=== PATIENT | female | born 1990 | race Caucasian/White ===

== ENCOUNTER 2018-06-17 21:02 | Observation (INO) | payer MEDICAID ==
[~2018-06-17] VITALS: Ht 152.4 cm; Wt 60.3 kg
[2018-06-17] MEDS ORDERED: PREN1TAB78 MT (21:57)
[2018-06-17] MEDS ORDERED: CEFAZOLIN 2,000 MG in DEXT 5% WATER 100 ML IV NR (22:15)
[2018-06-17] MEDS ORDERED: LACTATED RINGERS 1,000 ML IV SCH (22:15)
[2018-06-17 22:53] LABS: CLARITY URINE CLEAR (CLEAR); COLOR URINE YELLOW (YELLOW); KETONES URINE TRACE (NEGATIVE); LEUKOCYTE ESTERASE URINE TRACE (NEGATIVE); NITRITE URINE NEGATIVE (NEGATIVE); OCCULT BLOOD URINE NEGATIVE (NEGATIVE); PH URINE 6.5 (4.5-8.0); PROTEIN URINE NEGATIVE (NEGATIVE); SPECIFIC GRAVITY URINE 1.021 (1.005-1.030); UROBILINOGEN URINE 0.2 E.U./dL (0.2-1.0)
[2018-06-17] MEDS ORDERED: TERBUTALINE SULFATE 1MG/ML VIAL SUBCUT PRN (23:15)
[2018-06-18] MEDS ORDERED: ACETAMINOPHEN 500MG TABLET PO NR (00:30)
== END 2018-06-18 01:20 | disposition home or self-care (01) ==
LOC: 8 EST LDRP 21:02
PROVIDERS: ADMIT Obstetrics & Gynecology; ATTEND Obstetrics & Gynecology
DX: O26.893 Other specified pregnancy related conditions, third trimester (principal); R10.30 Lower abdominal pain, unspecified; M54.5 Low back pain; Z3A.31 31 weeks gestation of pregnancy
CPT/HCPCS: 81003; 82731; 96365; 96372; 99281; G0378; J0690; J3105; 96360; 96361; J7060

== ENCOUNTER → 2018-07-14 | Outpatient (CLI) | payer MEDICAID ==
[~2018-07-14] MED LIST: BUPIVACAINE HCL/PF 0.25% (2.5MG/ML) 10ML ONE; FENTANYL CITRATE/PF 50MCG/ML 2ML VIAL ONE; PREN1TAB78 MT
== END | disposition home or self-care (01) ==
LOC: US 10:28
PROVIDERS: ATTEND Physician Assistant Medical
DX: Z34.03 Encounter for supervision of normal first pregnancy, third trimester (principal); Z3A.35 35 weeks gestation of pregnancy
CPT/HCPCS: 76805; 76818

== ENCOUNTER 2018-07-24 20:39 | Observation (INO) | payer MEDICAID ==
[~2018-07-24] VITALS: Ht 149.9 cm; Wt 59.9 kg
[~2018-07-24 20:39] MED LIST changes: -BUPIVACAINE HCL/PF 0.25% (2.5MG/ML) 10ML ONE; -FENTANYL CITRATE/PF 50MCG/ML 2ML VIAL ONE
[2018-07-24] MEDS ORDERED: LACTATED RINGERS 1,000 ML IV SCH (23:32)
[2018-07-24] MEDS ORDERED: TERBUTALINE SULFATE 1MG/ML VIAL SUBCUT ONE (23:45)
[2018-07-24 23:58] LABS: CLARITY URINE CLEAR (CLEAR); COLOR URINE YELLOW (YELLOW); KETONES URINE NEGATIVE (NEGATIVE); LEUKOCYTE ESTERASE URINE NEGATIVE (NEGATIVE); NITRITE URINE NEGATIVE (NEGATIVE); OCCULT BLOOD URINE NEGATIVE (NEGATIVE); PH URINE 7.5 (4.5-8.0); PROTEIN URINE NEGATIVE (NEGATIVE); SPECIFIC GRAVITY URINE 1.006 (1.005-1.030); UROBILINOGEN URINE 0.2 E.U./dL (0.2-1.0)
== END 2018-07-25 01:50 | disposition home or self-care (01) ==
LOC: 8 EST LDRP 20:39
PROVIDERS: ADMIT Obstetrics & Gynecology; ATTEND Obstetrics & Gynecology
DX: O26.893 Other specified pregnancy related conditions, third trimester (principal); R10.2 Pelvic and perineal pain; R51 Headache; M54.9 Dorsalgia, unspecified; R11.0 Nausea; R10.30 Lower abdominal pain, unspecified; Z3A.36 36 weeks gestation of pregnancy
CPT/HCPCS: 81003; 99281; G0378; J3105; 96360; 96361; 96372

== ENCOUNTER 2018-08-14 05:33 | Inpatient (IN) | payer MEDICAID ==
[~2018-08-14] VITALS: Ht 152.4 cm; Wt 61.2 kg
[2018-08-14] MEDS ORDERED: DEXT 5%/LR + PITOCIN 20UNITS/L 1,000 ML IV SCH ×2 (05:48→17:04)
[2018-08-14] MEDS ORDERED: METHYLERGONOVINE MALEATE 0.2 MG/ML IM PRN (06:00)
[2018-08-14] MEDS ORDERED: BUTORPHANOL TARTRATE 2 MG/ML VIAL IV PRN (06:00)
[2018-08-14] MEDS ORDERED: CARBOPROST TROMETHAMINE 250 MCG/ML AMPUL IM PRN (06:00)
[2018-08-14] MEDS ORDERED: MISOPROSTOL 100MCG TABLET VG SCH (06:00)
[2018-08-14] MEDS ORDERED: LIDOCAINE HCL 1% 20ML VIAL (Pyxis) INJ INFIL SCH (06:00)
[2018-08-14] MEDS ORDERED: PENICILLIN G POTASSIUM 5 MMU in DEXT 5% WATER 100 ML IV SCH (06:00)
[2018-08-14 06:56] LABS: BASOPHILS % 0.6 % (0.0-2.0); EOSINOPHILS % 0.6 % (0.0-5.0); HEMATOCRIT. 36.1 % (36.0-48.0); HEMOGLOBIN. 12.2 g/dL (12.0-16.0); LYMPHOCYTES % 14.4 % (20.0-50.0); MEAN CORPUSCULAR HEMOGLOBIN 30.1 pg (28.0-32.0); MEAN CORPUSCULAR VOLUME 88.6 fL (81.0-99.0); MEAN PLATELET VOLUME 9.5 fl (7.4-10.4); NEUTROPHILS % 76.4 % (40.0-76.0); PLATELET 172 x1000/uL (130-400); RED BLOOD CELL COUNT 4.07 mill/uL (4.2-5.4); RED CELL DISTRIBUTION WIDTH 13.5 % (11.6-14.6)
[2018-08-14 06:59] LABS: CLARITY URINE CLEAR (CLEAR); COLOR URINE YELLOW (YELLOW); KETONES URINE NEGATIVE (NEGATIVE); LEUKOCYTE ESTERASE URINE 2+ (NEGATIVE); NITRITE URINE NEGATIVE (NEGATIVE); OCCULT BLOOD URINE TRACE (NEGATIVE); PH URINE 6.5 (4.5-8.0); PROTEIN URINE NEGATIVE (NEGATIVE); SPECIFIC GRAVITY URINE 1.008 (1.005-1.030); UROBILINOGEN URINE 0.2 E.U./dL (0.2-1.0)
[2018-08-14 07:06] LABS: INR 0.9; PARTIAL THROMBOPLASTIN TIME 26.6 sec (23.4-31.0); PROTHROMBIN TIME 9.4 sec (9.1-11.1)
[2018-08-14] MEDS ORDERED: LABETALOL 5MG/ML SYR 20 MG/4 ML SYRINGE IV PRN (07:15)
[2018-08-14] MEDS ORDERED: ONDANSETRON HCL 4MG/2ML INJ IV PRN (07:15)
[2018-08-14] MEDS ORDERED: MEPERIDINE HCL/PF 25MG/ML CPJ IV PRN (07:15)
[2018-08-14] MEDS ORDERED: HYDROMORPHONE HCL/PF 2MG/ML CPJ IV PRN (07:15)
[2018-08-14] MEDS: LACTATED RINGERS 1,000 ML IV SCH ×2 (07:17→08:12)
[2018-08-14] MEDS ORDERED: BUPIVACAINE HCL/NS/PF EPIDURAL 100 ML in SODIUM CHLORIDE 0.9% 100 ML EP ONE (07:45)
[2018-08-14 07:48] LABS: *COCAINE SCREEN URINE NEGATIVE (NEGATIVE)
[2018-08-14 07:50] LABS: *AMPHETAMINES SCREEN URINE NEGATIVE (NEGATIVE); *BARBITURATES SCREEN URINE NEGATIVE (NEGATIVE); CANNABINOID URINE SCREEN NEGATIVE (NEGATIVE); METHADONE URINE SCREEN NEGATIVE (NEGATIVE); OPIATES URINE SCREEN NEGATIVE (NEGATIVE); PHENCYCLIDINE URINE SCREEN NEGATIVE (NEGATIVE)
[2018-08-14 07:51] LABS: *BENZODIAZEPINES SCREEN URINE NEGATIVE (NEGATIVE)
[2018-08-14] MEDS ORDERED: BUPIVACAINE HCL/NS/PF EPIDURAL 100 ML EP PRN (08:30)
[2018-08-14] MEDS ORDERED: BUPIVACAINE HCL/NS/PF EPIDURAL 100 ML EP ONE (08:32)
[2018-08-14] MEDS ORDERED: PENICILLIN G POTASSIUM 2.5 MMU in DEXTROSE 5% WATER 50 ML IV SCH (10:00)
[2018-08-14 11:54] LABS: HEPATITIS B SURFACE ANTIGEN NEGATIVE
[2018-08-14] MEDS ORDERED: BENZOCAINE/LANOLIN/ALOE VERA SPRAY TOP PRN (17:15)
[2018-08-14] MEDS ORDERED: HEMORRHOIDAL SUPP PR PRN (17:15)
[2018-08-14] MEDS ORDERED: DIPHENHYDRAMINE 25MG CAPSULE PO PRN (17:15)
[2018-08-14] MEDS ORDERED: IBUPROFEN 400MG TABLET PO PRN (17:15)
[2018-08-14] MEDS ORDERED: BISACODYL 10MG SUPP PR PRN (17:15)
[2018-08-14] MEDS ORDERED: ACETAMINOPHEN 325MG TABLET PO ONE (17:15)
[2018-08-14] MEDS ORDERED: LANOLIN OINT 0.25 GM TUBE TOP PRN (17:15)
[2018-08-14] MEDS ORDERED: GLYCERIN/WITCH HAZEL LEAF MEDICATED PAD TOP PRN (17:30)
[2018-08-14] MEDS: IBUPROFEN 800MG TABLET PO PRN (17:35)
[2018-08-14 18:05] VITALS: BP 94/49
[2018-08-14 18:40] VITALS: BP 91/50
[2018-08-14] MEDS: CLINDAMYCIN 900 MG in DEXTROSE 5% WATER 50 ML IV SCH ×2 (19:00→21:45)
[2018-08-14 19:12] LABS: HEMATOCRIT. 35.1 % (36.0-48.0); HEMOGLOBIN. 11.6 g/dL (12.0-16.0); MEAN CORPUSCULAR HEMOGLOBIN 29.5 pg (28.0-32.0); MEAN CORPUSCULAR VOLUME 89.2 fL (81.0-99.0); MEAN PLATELET VOLUME 9.4 fl (7.4-10.4); PLATELET 152 x1000/uL (130-400); RED BLOOD CELL COUNT 3.94 mill/uL (4.2-5.4); RED CELL DISTRIBUTION WIDTH 13.7 % (11.6-14.6)
[2018-08-14 19:30] VITALS: BP 99/57
[2018-08-14 19:32] LABS: PLATELET ESTIMATE NORMAL
[2018-08-14] MEDS: GENTAMICIN 100MG PREMIX 50 ML IV SCH (20:47)
[2018-08-14] MEDS: DOCUSATE SODIUM 100MG CAPSULE PO SCH (21:01)
[2018-08-14] MEDS: SIMETHICONE 80MG TABLET CHEW PO SCH (21:02)
[2018-08-14 23:30] VITALS: BP 99/65
[2018-08-15] MEDS: GENTAMICIN 100MG PREMIX 50 ML IV SCH ×3 (05:01→21:01)
[2018-08-15] MEDS: CLINDAMYCIN 900 MG in DEXTROSE 5% WATER 50 ML IV SCH ×3 (05:51→21:51)
[2018-08-15 07:39] VITALS: BP 104/63
[2018-08-15] MEDS: PRENATAL VIT/FE FUMARATE/FA TABLET PO SCH (08:23)
[2018-08-15] MEDS: SIMETHICONE 80MG TABLET CHEW PO SCH ×3 (08:23→22:23)
[2018-08-15] MEDS: FERROUS SULFATE 325MG TABLET PO SCH ×2 (08:23→13:04)
[2018-08-15] MEDS: IBUPROFEN 800MG TABLET PO PRN (13:04)
[2018-08-15] MEDS: ACETAMINOPHEN WITH CODEINE 300/30MG TABLET PO PRN ×2 (15:38→19:57)
[2018-08-15 16:04] VITALS: BP 100/51
[2018-08-15 20:00] VITALS: BP 99/57
[2018-08-15] MEDS: DOCUSATE SODIUM 100MG CAPSULE PO SCH (22:23)
[2018-08-16] VITALS: BP 99/65
[2018-08-16] MEDS: GENTAMICIN 100MG PREMIX 50 ML IV SCH (06:10)
[2018-08-16] MEDS: IBUPROFEN 800MG TABLET PO PRN (06:11)
[2018-08-16] MEDS: CLINDAMYCIN 900 MG in DEXTROSE 5% WATER 50 ML IV SCH (06:49)
[2018-08-16] MEDS: PRENATAL VIT/FE FUMARATE/FA TABLET PO SCH (08:44)
[2018-08-16] MEDS: FERROUS SULFATE 325MG TABLET PO SCH (08:44)
[2018-08-16] MEDS: ACETAMINOPHEN WITH CODEINE 300/30MG TABLET PO PRN (08:44)
[2018-08-16] MEDS: SIMETHICONE 80MG TABLET CHEW PO SCH (08:44)
[2018-08-16 09:00] VITALS: BP 90/61
== END 2018-08-16 13:45 | disposition home or self-care (01) | DRG 560 ==
LOC: OBSVTOIN 05:33 → 8 EST LDRP 05:33 → 8EST 18:04
PROVIDERS: ADMIT Obstetrics & Gynecology; ATTEND Obstetrics & Gynecology
PROC: 10E0XZZ Delivery of Products of Conception, External Approach (ICD-10-PCS; principal; 2018-08-14)
PROC: 0KQM0ZZ Repair Perineum Muscle, Open Approach (ICD-10-PCS; 2018-08-14)
PROC: 3E0R3BZ Introduction of Anesthetic Agent into Spinal Canal, Percutaneous Approach (ICD-10-PCS; 2018-08-14)
PROC: 00HU33Z Insertion of Infusion Device into Spinal Canal, Percutaneous Approach (ICD-10-PCS; 2018-08-14)
DX: O69.81X0 Labor and delivery complicated by cord around neck, without compression, not applicable or unspecified (principal); O70.1 Second degree perineal laceration during delivery; Z3A.39 39 weeks gestation of pregnancy; Z37.0 Single live birth
CPT/HCPCS: 36415; 80305; 86592; 86703; 86762; 86850; 86900; 87070; 87340; 96360; 96365; 99281; J1580; J2540; J2590; J3490; J7060; J7120; A4315

== ENCOUNTER 2023-01-29 08:45 | Observation (INO) | payer MEDICAID ==
[~2023-01-29] VITALS: Ht 147.3 cm; Wt 63.0 kg
[2023-01-29] MEDS ORDERED: ONDANSETRON HCL 4MG/2ML INJ IV PRN (09:45)
[2023-01-29] MEDS ORDERED: LACTATED RINGERS 1,000 ML IV SCH ×2 (09:45)
[2023-01-29] MEDS ORDERED: LACTATED RINGERS 1,000 ML IV NR (10:15)
[2023-01-29 10:20] LABS: CLARITY URINE CLOUDY (CLEAR); COLOR URINE YELLOW (YELLOW); GLUCOSE URINE NEGATIVE (NEGATIVE); KETONES URINE NEGATIVE (NEGATIVE); LEUKOCYTE ESTERASE URINE 2+ (NEGATIVE); NITRITE URINE NEGATIVE (NEGATIVE); OCCULT BLOOD URINE TRACE (NEGATIVE); PROTEIN URINE NEGATIVE (NEGATIVE); SPECIFIC GRAVITY URINE 1.014 (1.005-1.030)
[2023-01-29 10:34] LABS: BACTERIA URINE 3+; RBC URINE 0-2 /hpf (0-2); SQUAMOUS EPITHELIAL CELL URINE 3+ /lpf (RARE/1+); WBC URINE 15-25 /hpf (0-2); YEAST URINE NONE SEEN
[2023-01-29] MEDS ORDERED: CEFAZOLIN 2,000 MG in DEXT 5% WATER 100 ML IV SCH (11:00)
[2023-01-29 12:22] LABS: CHLORIDE 105 mEq/L (98-107); INDEX HEMOLYSI 1 (1-3); INDEX ICTERIC 1 (1-4); INDEX LIPEMIC 1 (1-3); POTASSIUM 3.4 mEq/L (3.5-5.1); SODIUM 136 mEq/L (136-145)
[2023-01-29 12:33] LABS: ALANINE AMINOTRANSFERASE 25 IU/L (13-61); ALBUMIN 2.4 g/dL (3.4-5.0); ASPARTATE AMINOTRANSFERASE 19 IU/L (15-37); BILIRUBIN TOTAL 0.4 mg/dL (0.1-1.0); CALCIUM 8.2 mg/dL (8.5-10.1); CARBON DIOXIDE 22 mEq/L (21-32); CREATININE 0.5 mg/dL (0.6-1.3); GLUCOSE 87 mg/dL (70-105); PROTEIN TOTAL 5.7 g/dL (6.0-8.3); UREA NITROGEN BLOOD 6 mg/dL (7-21)
== END 2023-01-29 14:30 | disposition home or self-care (01) ==
LOC: 8 EST LDRP 08:45
PROVIDERS: ADMIT Obstetrics & Gynecology; ATTEND Obstetrics & Gynecology
DX: O99.891 Other specified diseases and conditions complicating pregnancy (principal); Z20.822 Contact with and (suspected) exposure to COVID-19; M54.9 Dorsalgia, unspecified; O21.2 Late vomiting of pregnancy; O26.893 Other specified pregnancy related conditions, third trimester; O42.92 Full-term premature rupture of membranes, unspecified as to length of time between rupture and onset of labor; R19.7 Diarrhea, unspecified; O62.9 Abnormality of forces of labor, unspecified; Z3A.29 29 weeks gestation of pregnancy
CPT/HCPCS: 59025; 96361; 96365; 80053; 81003; 87086; 36415; 76805; 87426; 96375; J0690; J2405; J7060; G0378 ×2; 76815; 96360; 99281; J7120

== ENCOUNTER 2023-03-31 15:04 | Observation (INO) | payer MEDICAID ==
[~2023-03-31] VITALS: Ht 149.9 cm; Wt 59.9 kg
[2023-03-31] MEDS ORDERED: ACETAMINOPHEN 500MG TABLET PO SCH (16:30)
== END 2023-03-31 16:45 | disposition left against medical advice (07) ==
LOC: 8 EST LDRP 15:04
PROVIDERS: ADMIT Obstetrics & Gynecology; ATTEND Obstetrics & Gynecology
DX: O26.893 Other specified pregnancy related conditions, third trimester (principal); R10.9 Unspecified abdominal pain; R19.7 Diarrhea, unspecified; Z3A.36 36 weeks gestation of pregnancy
CPT/HCPCS: 59025; 99281; G0378 ×2; G0379